=== PATIENT | female | born 1985 | race Caucasian/White ===

== ENCOUNTER 2018-08-25 19:11 | Emergency (ER) | payer MEDICAID ==
[2018-08-25] MEDS: IBUPROFEN 600 MG TAB PO (19:33)
== END 2018-08-25 21:01 | disposition home or self-care (01) ==
LOC: FTE 19:11
DX: S50.01XA Contusion of right elbow, initial encounter (principal); V00.121A Fall from non-in-line roller-skates, initial encounter; Y92.9 Unspecified place or not applicable
CPT/HCPCS: 73080; 73080-RT; 99283-25

== ENCOUNTER 2019-01-11 01:04 | Emergency (ER) | payer MEDICAID ==
[2019-01-11] MEDS: LORAZEPAM 2 MG INJ IM (01:50)
== END 2019-01-11 03:41 | disposition home or self-care (01) ==
LOC: E/R 01:04
DX: F41.9 Anxiety disorder, unspecified (principal)
CPT/HCPCS: 71045; 81025; 93005; 96372; 99284-25